=== PATIENT | male | born 1980 | race Caucasian/White ===

== ENCOUNTER 2020-08-25 23:59 | Emergency (ER) | payer MEDICAID ==
[~2020-08-25] VITALS: Ht 167.6 cm; Wt 75.3 kg
[2020-08-26 00:11] VITALS: Ht 167.6 cm; Wt 75.3 kg
[2020-08-26 01:37] VITALS: BP 112/74
== END 2020-08-26 01:37 | disposition left against medical advice (07) ==
LOC: ED 23:59
DX: S86.211A Strain of muscle(s) and tendon(s) of anterior muscle group at lower leg level, right leg, initial encounter (principal); V19.09XA Pedal cycle driver injured in collision with other motor vehicles in nontraffic accident, initial encounter; Y93.89 Activity, other specified; Y92.89 Other specified places as the place of occurrence of the external cause; Y99.8 Other external cause status
CPT/HCPCS: 90715; G0480; J2001; J2270; Q0162